=== PATIENT | male | born 1970 | race Asian ===

== ENCOUNTER 2017-08-17 01:47 | Inpatient (IN) | payer OTHER, BC ==
[~2017-08-17] VITALS: Ht 180.3 cm; Wt 90.9 kg
[2017-08-17 03:27] LABS: BASO % 0.3 % (0.0-2.0); EOS # 0.2 (0.0-0.7); EOS % 1.7 % (0-4.0); GRAN # 5.9 (1.4-6.5); HEMATOCRIT 47.7 % (42.0-52.0); HEMOGLOBIN 16.3 g/dl (13.5-18.0); LYMPH # 1.8 (1.2-3.4); LYMPH % 19.6 % (20.0-51.0); MEAN CELL VOLUME 87 fl (80.0-100.0); MEAN CORPUSCULAR HEMOGLOBIN 30 pg (27.0-31.0); MEAN CORPUSCULAR HGB CONC 34 g/dl (33.0-37.0); MEAN PLATELET VOLUME 9.9 fl (7.4-10.4); MONO # 1.1 (0.1-0.6); PLATELET COUNT 174 K/mm3 (130-400); RED BLOOD COUNT 5.46 M/mm3 (4.20-5.60); REDCELL DISTRIBUTION WIDTH-CV 13.1 % (11.5-14.5)
[2017-08-17 03:41] LABS: ADJUSTED CALCIUM 9.2 mg/dL (8.4-10.2); ALBUMIN 4.8 gm/dL (3.5-5.0); BILIRUBIN,TOTAL 1.2 mg/dL (0.0-1.0); C-REACTIVE PROTEIN 1.9 mg/dL (0.0-0.9); CALCIUM 9.8 mg/dL (8.4-10.2); CREATININE, serum 1.05 mg/dL (0.66-1.25); TOTAL PROTEIN 8.3 gm/dL (6.4-8.2)
[2017-08-17] MEDS ORDERED: MULTI VITAMINS1 TAB PO (05:55)
[2017-08-17] MEDS ORDERED: LEVAQUIN 750MG750 M1 PO (05:55)
[2017-08-17] MEDS ORDERED: FLAGYL500 MG PO (05:56)
[2017-08-17 09:03] VITALS: BP 124/81; PULSE 80; TEMP 98.1
[2017-08-17 13:35] VITALS: BP 122/82; PULSE 76; TEMP 98.5
[2017-08-17 17:31] VITALS: BP 123/84; PULSE 80; TEMP 98.3
[2017-08-17 21:35] VITALS: BP 121/71; PULSE 84; TEMP 98.4
[2017-08-18 05:25] VITALS: BP 119/75; PULSE 81; TEMP 98
[2017-08-18 07:20] LABS: ADD PATHOLOGY DIFF REVIEW NO
[2017-08-18 07:24] LABS: HEMATOCRIT 42.6 % (42.0-52.0); MEAN CELL VOLUME 88 fl (80.0-100.0); MEAN CORPUSCULAR HGB CONC 33 g/dl (33.0-37.0); MEAN PLATELET VOLUME 10.5 fl (7.4-10.4); PLATELET COUNT 152 K/mm3 (130-400); RED BLOOD COUNT 4.82 M/mm3 (4.20-5.60); REDCELL DISTRIBUTION WIDTH-CV 12.8 % (11.5-14.5); WHITE BLOOD COUNT 5.4 K/mm3 (4.8-10.8)
[2017-08-18 07:55] LABS: HEMOGLOBIN 14.2 g/dl (13.5-18.0); MEAN CORPUSCULAR HEMOGLOBIN 29 pg (27.0-31.0)
[2017-08-18 07:57] LABS: ADJUSTED CALCIUM 9.2 mg/dL (8.4-10.2); ALBUMIN 3.8 gm/dL (3.5-5.0); CREATININE, serum 0.92 mg/dL (0.66-1.25); TOTAL PROTEIN 6.7 gm/dL (6.4-8.2)
[2017-08-18 09:38] LABS: BAND 24 % (0-10); MYELOCYTE 1 % (0-0); NEUTROPHILS 47 % (42.0-75.2); PLATELET ESTIMATE NORMAL (NORMAL); TOTAL CELLS COUNTED 100
[2017-08-18 10:20] VITALS: BP 128/90; PULSE 77; TEMP 98.3
[2017-08-18 13:39] VITALS: BP 127/83; PULSE 81; TEMP 98.4
[2017-08-18 17:05] VITALS: BP 135/90; PULSE 87; TEMP 98.4
[2017-08-18 22:14] VITALS: BP 128/88; PULSE 88; TEMP 99.3
[2017-08-19] VITALS (8 sets, daily range): BP systolic 116–137; BP diastolic 76–94; PULSE 16–82; TEMP 98.2–98.8
[2017-08-19 07:36] LABS: BASO % 0.3 % (0.0-2.0); EOS # 0.2 (0.0-0.7); EOS % 3.7 % (0-4.0); GRAN # 3.4 (1.4-6.5); GRAN % 56.9 % (42.2-75.2); HEMATOCRIT 47.2 % (42.0-52.0); HEMOGLOBIN 15.6 g/dl (13.5-18.0); LYMPH # 1.7 (1.2-3.4); MEAN CELL VOLUME 89 fl (80.0-100.0); MEAN CORPUSCULAR HEMOGLOBIN 30 pg (27.0-31.0); MEAN CORPUSCULAR HGB CONC 33 g/dl (33.0-37.0); MEAN PLATELET VOLUME 10.3 fl (7.4-10.4); MONO # 0.6 (0.1-0.6); MONO % 9.8 % (1.7-9.3); PLATELET COUNT 177 K/mm3 (130-400); RED BLOOD COUNT 5.28 M/mm3 (4.20-5.60); REDCELL DISTRIBUTION WIDTH-CV 12.9 % (11.5-14.5); WHITE BLOOD COUNT 5.9 K/mm3 (4.8-10.8)
[2017-08-19 07:41] LABS: CALCIUM 9.5 mg/dL (8.4-10.2); CREATININE, serum 0.97 mg/dL (0.66-1.25); MAGNESIUM 1.9 mg/dL (1.6-2.3); POTASSIUM 3.8 mmol/L (3.4-5.0)
[2017-08-19] MEDS ORDERED: INVANZ INJ1 G/VIAL IV (13:31)
[2017-08-19] MEDS ORDERED: NORCO 325 MG-51 TAB PO (13:49)
== END 2017-08-19 15:00 | disposition home or self-care (01) | DRG 392 ==
LOC: COL.ER 01:47 → SURG 06:44
PROVIDERS: Emergency Medicine; Internal Medicine; Internal Medicine Gastroenterology; Nurse Practitioner Family
PROC: 0DJD8ZZ Inspection of Lower Intestinal Tract, Via Natural or Artificial Opening Endoscopic (ICD-10-PCS; principal; 2017-08-19 12:00)
DX: K57.32 Diverticulitis of large intestine without perforation or abscess without bleeding (principal)
CPT/HCPCS: 99222-AI; 99233-AI; 99239; J1170; J1335; J1650; J1885; J2060; J2185; J2270; J2405; J2704; J7030; Q9967